=== PATIENT | female | born 1975 | race African-American/Black ===

== ENCOUNTER 2018-08-20 14:35 | Observation (INO) | payer BC ==
--- NOTE | 2018-08-20 15:42 | ED ---
Syncope/Near Syncope - HPI Summary HPI Summary: Patient reports abrupt onset of multiple symptoms at 14:00 this afternoon while at work. She states she was sitting at her desk when she turned at a regular pace to speak with a coworker and she had abrupt onset of what she describes as difficulty speaking although she could think of the words (reports I wanted to say the word "blue" but couldn't), the room was spinning, chest tightness across her entire chest and into both arms with tingling in her hands, difficulty breathing, difficulty focusing her vision and a feeling that she may pass out. She's not sure how long this lasted but believes it was a couple of minutes. These symptoms have passed however and she is now left feeling fatigued yet jittery and with generalized weakness and nausea. History of hypertension and fluid in her lower extremities as well as reduced EF in the 40's. She takes Diovan HCTZ and Norvasc. She reports she has not had any swelling in her lower extremities over the past 2 weeks. She also was diagnosed with "prediabetes" and states her hemoglobin A1c has not been above 6.7. It was advised that she start metformin however she has not taken this due to GI side effects (ie. loose stools). She also has a history of migraines which presented as a frontal headache photophobia and nausea - these resolved with ibuprofen and rest - she does not feel that the symptoms are the same as a migraine. Denies known history of aneurysm and no recent history of travel or trauma. She denies use of hormone therapy however admits her menstrual periods have been heavy as of late and she is scheduled to follow-up with [employer] regarding this issue. No known history of anemia. She does have a history of vitamin D deficiency and takes supplement once a week for that as well. She has asthma and has been struggling with respiratory symptoms over the past month. Reports at Thanksgiving time she developed URI with cough. Was seen initially and given supportive care. Did not improve so went back to the hospital and was given steroids along with nebulizer treatments and Symbicort. She reports she's feeling somewhat better since however admits she did not take her oral prednisone as directed intially but is in taper down at this time (has almost completed medication). She also feels she has not completely cleared URI /cough symptoms and they are lingering to some degree. Denies clair fever, chills, abdominal pain, vomiting, diarrhea and no recent history of dehydration. 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 - Allergies/Home Medications Allergies/Adverse Reactions: Allergies Allergy/AdvReac Type Severity Reaction Status Date / Time No Known Allergies Allergy Verified 08/20/18 19:56 Home Medications: Home Medications Albuterol 2.5MG/3ML (0.083%)* [Ventolin 2.5 MG/3 ML NEB.ALFIE*] 2.5 mg INH Q6H PRN 08/20/18 [History Confirmed 08/20/18] Aspirin 81 mg CHEW TAB* 81 mg PO DAILY 08/20/18 [History Confirmed 08/20/18] Diovan Hct 320/25(NF) 1 cap PO DAILY 08/20/18 [History Confirmed 08/20/18] Ergocalciferol (Vitamin D2) [Vitamin D2] 50,000 units PO WEEKLY 08/20/18 [ History Confirmed 08/20/18] amLODIPine TAB* [Norvasc 5 mg TAB*] 5 mg PO DAILY 08/20/18 [History Confirmed ] Budesonide/Formote 160/4.5(NF) [Symbicort 160/4.5 (NF)] 1 puff INH BID 08/22/18 [History Confirmed 08/22/18] PMH/Surg Hx/FS Hx/Imm Hx Previously Healthy: No - fighting URI/asthma exacerbation Endocrine/Hematology History: Reports: Hx Diabetes - "pre-diabetes" - non- compliant w/ metformin, Other Endocrine/Hematological Disorders - morbid obesity Denies: Hx Anticoagulant Therapy Cardiovascular History: Reports: Hx Hypertension - on meds, Other Cardiovascular Problems/Disorders - cardiomyopathy, EF in 40's - follows w/ [facility] Denies: Hx Aneurysm Respiratory History: Reports: Hx Asthma, Hx Sleep Apnea Sensory History: Reports: Hx Contacts or Glasses Opthamlomology History: Reports: Hx Contacts or Glasses Neurological History: Reports: Hx Migraine Infectious Disease History: No Infectious Disease History: Denies: Traveled Outside the [place] in Last 30 Days - Social History 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 Negative: Abdominal Pain, Vomiting, Diarrhea Genitourinary: Negative Musculoskeletal: Negative Skin: Negative Neurological: Other - see HPI for details Positive: Weakness - generalized Psychological: Normal - concerned but calm and cooperative All Other Systems Reviewed And Are Negative: Yes Physical Exam Triage Information Reviewed: Yes Vital Signs On Initial Exam: Initial Vitals Temp Pulse Resp BP Pulse Ox 97.9 F 96 20 153/83 97 08/20/18 14:41 08/20/18 14:41 08/20/18 14:41 08/20/18 14:41 08/20/18 14:41 Vital Signs Reviewed: Yes Appearance: Positive: Well-Appearing - anxious but cooperative, No Pain Distress , Obese Skin: Positive: Warm, Skin Color Reflects Adequate Perfusion, Dry Head/Face: Positive: Normal Head/Face Inspection Eyes: Positive: Normal, EOMI, FARHEEN - mild photophobia, Conjunctiva Clear ENT: Positive: Normal ENT inspection, Hearing grossly normal, Pharynx normal, TMs normal, Uvula midline. Negative: Nasal congestion, Nasal drainage, Tonsillar swelling, Tonsillar exudate, Trismus, Muffled voice, Hoarse voice, Dental tenderness, Sinus tenderness Dental: Negative: Dental Fracture @, Abscess @ Neck: Positive: Supple, Nontender, No Lymphadenopathy Respiratory/Lung Sounds: Positive: Clear to Auscultation, Breath Sounds Present. Negative: Rales, Rhonchi, Stridor, Tracheal Deviation, Wheezes, Unable to speak in full sentences, Fatigue Cardiovascular: Positive: Normal, RRR, S1, S2. Negative: Murmur, Rub, Leg Edema Left, Leg Edema Right - at the ankles Abdomen Description: Positive: Nontender, Soft Bowel Sounds: Positive: Present Musculoskeletal: Positive: Normal, Strength/ROM Intact Neurological: Positive: Normal, Sensory/Motor Intact, Alert, Oriented to Person Place, Time, CN Intact II-III Psychiatric: Positive: Normal - [place] Coma Scale Best Eye Response: 4 - Spontaneous Best Motor Response: 6 - Obeys Commands Best Verbal Response: 5 - Oriented Coma Scale Total: 15 Diagnostics - Vital Signs Vital Signs Temp Pulse Resp BP Pulse Ox 08/20/18 14:47 94 96 08/20/18 14:46 96 153/83 97 08/20/18 14:41 97.9 F 96 20 153/83 97 - Laboratory Result Diagrams: 08/20/18 16:18 08/20/18 16:18 Lab Statement: Any lab studies that have been ordered have been reviewed, and results considered in the medical decision making process. National Institutes Of Health - NIH Scale Level of Consciousness: Alert/Keenly Responsive Ask Patient the Month and His/Her Age: Both Correct Ask Pt to Open/Close Eyes and Clinical Team Lead/Release Non-Paretic Hand: Both Correctly Best Gaze (Only Horizontal Eye Movement): Normal Visual Field Testing: No Visual Loss Facial Paresis-Pt to Smile & Close Eyes or Grimace Symmetry: Normal/Symmetrical Motor Function - Right Arm: No Drift-Holds 10 Seconds Motor Function - Left Arm: No Drift-Holds 10 Seconds Motor Function - Right Leg: No Drift-Holds 10 Seconds Motor Function - Left Leg: No Drift-Holds 10 Seconds Limb Ataxia-Must be out of Proportion to Weakness Present: Absent Sensory (Use Pinprick to Test Arms/Legs/Trunk/Face): Normal Best Language (Describe Picture, Name Items): No Aphasia Dysarthria (Read Several Words): Normal Extinction and Inattention: No Abnormality Total Score: 0 Course/Dx Course Of Treatment: Patient presents with multiple symptoms of concern for cardiac and/or neurologic pathology. She reports these abruptly came on at 1400 this afternoon with minimal provocation and lasted for a couple of minutes. She has risk factors for DE, PE, CVA/TIA, vascular dissection. Other diff dx include anemia, electrolyte imbalance, thyroid dysfunction, exacerbation of poor cardiac EF (she reports this is 40% at last assessment), volume depletion, etc. See history of present illness for details. Initial concerns included TIA as she has no neuro deficits at this time. A workup to assess her cardiac and pulmonary function were also ordered as well as assessment of electrolytes, thyroid function and red blood cell status given her recent history of heavy periods. ECG reveals normal sinus rhythm with [address] elevations. CT of brain w/o hemorrhage or signs of inflammation. Her NIH score is 0 at 15:30. She was signed out to Perry Cruz PA-C in same condition as she presented. No meds given as pt's w/u is early and vitals stable w/o intervention at this time. - Diagnoses Provider Diagnoses: Aphasia, Chest pain, Near syncope Discharge - Sign-Out/Discharge Documenting (check all that apply): Sign-Out Patient Signing out patient TO: Perry Cruz - Discharge Plan Condition: Stable Disposition: ADMITTED TO [facility] - Billing Disposition and Condition Condition: STABLE Disposition: Admitted to [facility]
[2018-08-20 16:30] LABS: Hematocrit 36 % (35-47); Hemoglobin 11.8 g/dl (12.0-16.0); Mean Corpuscular HGB Conc 32 g/dl (31-36); Mean Corpuscular Hemoglobin 28 pg (27-31); Mean Corpuscular Volume 87 fL (80-97); Mean Platelet Volume 8.6 fL (7.4-10.4); Platelet Count 174 10^3/ul (150-450); Red Blood Count 4.19 10^6/ul (4.00-5.40); Red Cell Distribution Width 16 % (10.5-15); White Blood Count 7.4 10^3/ul (3.5-10.8)
[2018-08-20 16:40] LABS: Activated Partial Thrombo Time 28.8 seconds (26.0-36.3); INR 0.98 (0.77-1.02)
[2018-08-20 16:52] LABS: ALT 21 U/L (7-52); AST 17 U/L (13-39); Albumin 3.6 g/dL (3.2-5.2); Albumin/Globulin Ratio 1.1 (1-3); Alkaline Phosphatase 71 U/L (34-104); Anion Gap 4 mmol/L (2-11); BUN/Creatinine Ratio 17.6 (8-20); Blood Urea Nitrogen 16 mg/dL (6-24); CO2 Carbon Dioxide 33 mmol/L (22-32); Calcium 8.7 mg/dL (8.6-10.3); Chloride 102 mmol/L (101-111); EGFR Non-African American 66.9 (>60); Globulin 3.2 g/dL (2-4); Glucose 134 mg/dL (70-100); Magnesium 1.9 mg/dL (1.9-2.7); Sodium 139 mmol/L (135-145); Total Protein 6.8 g/dL (6.4-8.9)
[2018-08-20 17:00] LABS: HCG Pregnancy < 0.60 mIU/mL
[2018-08-20 17:21] LABS: ABS Basophils 0.1 10^3/ul (0-0.2); ABS Eosinophils 0.1 10^3/ul (0-0.6); ABS Lymphocytes 2.3 10^3/ul (1.0-4.8); ABS Monocytes 0.6 10^3/ul (0-0.8); ABS Neutrophils 4.2 10^3/ul (1.5-7.7); ABS Nucleated RBC 0 10^3/ul; Eosinophil % 1.2 %; Lymphocyte % 30.9 %; Nucleated Red Blood Cells % 0
[2018-08-20 17:46] LABS: TSH (Thyroid Stimulating Horm) 0.93 mcIU/mL (0.34-5.60)
[2018-08-20] MEDS ORDERED: Aspirin 81 mg CHEW TAB* 81 MG TAB.CHEW PO ONE (19:50)
[2018-08-20] MEDS ORDERED: Iohexol 350* (CONTRAST) 500 ML MDV IV ONE (19:57)
[2018-08-20 20:58] LABS: Urine Appearance Cloudy; Urine Bacteria Absent (Absent); Urine Bilirubin Negative (Negative); Urine Blood 1+ (Negative); Urine Color Yellow; Urine Glucose Negative (Negative); Urine Ketones Negative (Negative); Urine Nitrite Negative (Negative); Urine Protein Negative (Negative); Urine Red Blood Cell Trace(0-2/hpf) (Absent); Urine Urobilinogen Negative (Negative); Urine White Blood Cell Trace(0-5/hpf) (Absent)
[2018-08-20] MEDS ORDERED: Ondansetron INJ* 2 MG/ML VIAL IV PRN (21:51)
[2018-08-20] MEDS ORDERED: Acetaminophen TAB* 325 MG PO PRN (21:51)
[2018-08-20] MEDS ORDERED: Al Hydrox/Mg Hydrox/Simet LIQ* 30 ML UDC PO PRN (21:51)
[2018-08-20] MEDS ORDERED: Aspirin TAB* 325 MG PO ONE (21:57)
[2018-08-20] MEDS: Heparin VIAL(*) 5000 UNITS/ML VIAL (FIVE THOUSAND) SUBCUT SCH (23:17)
--- NOTE | 2018-08-21 01:50 | HP ---
CC: Yuliana Salazar * HISTORY AND PHYSICAL: DATE OF ADMISSION: 08/20/18 TIME OF EVALUATION: 1999 PRIMARY CARE PROVIDER: Yuliana Salazar. CHIEF COMPLAINT: Altered mental status. HISTORY OF PRESENT ILLNESS: This is a 43-year-old female with a past medical history of hypertension, morbid obesity, who had acute onset of altered mental status. The patient states she was recently diagnosed with URI and has asthma exacerbation which was getting better. 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 Right after lunch, she was about to walk to another alliance party; she stopped acutely, grabbed onto her friend because she became very off balance, shaky, lightheaded , dizzy, nauseated, and was unable to speak. She tried to speak, but she was unable to do that and she felt very weak in the upper torso of her body. She also felt slightly short of breath too and she had some vision changes. The extreme onset of symptoms lasted for about a minute and then the entire episode lasted 20 minutes before she fell back to herself. When EMS arrived, they recommended albuterol neb treatment as she states she was short of breath and they brought her here for further evaluation. She denies a headache. She did have some vision changes and the upper extremity weakness. She has never had a history of this in the past. She had just eaten prior to this episode. She denies any shortness of breath, no chest pain, no longer nauseated. She still feels little bit off but not like she was before. In the emergency room, the patient had labs and imaging with concern for TIA and Dr. Tuttle was contacted and recommended admission for further observation. PAST MEDICAL HISTORY: 1. Morbid obesity. 2. Hypertension. 3. Asthma. 4. Diabetes. MEDICATIONS: 1. The patient is on a prednisone taper 10 mg p.o. daily for 2 more days. 2. Albuterol MDI as needed. 3. Symbicort b.i.d. 4. Diovan/HCTZ 1 cap daily. 5. Aspirin 81 mg daily. 6. Norvasc 5 mg daily. 7. Vitamin D daily. 8. She is also prescribed metformin and Trulicity, but she does not take it, she feels that hemoglobin A1c has been normal. ALLERGIES: No known drug allergies. FAMILY HISTORY: Her mother is alive. Father is alive and has multiple myeloma. 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 No history of tobacco, alcohol, or illicit drug use. Her healthcare proxy is her mother. REVIEW OF SYSTEMS: A 14-point review of systems as mentioned in the HPI, otherwise negative. PHYSICAL EXAMINATION GENERAL: No acute distress. Resting comfortably. VITAL SIGNS: Temp 97.9, pulse rate 95, respiratory rate 20, oxygen saturation 98 % on room air, blood pressure 143/84. HEENT: Head: Normocephalic. Pupils are equal and reactive, anicteric. Oropharynx: Mucous membranes moist. NECK: Supple. No nuchal rigidity. RESPIRATORY: Diminished breath sounds. No wheezing, rhonchi, or rales. No increased work of breathing. CARDIAC: Regular rate and rhythm. Soft systolic murmur heard throughout. ABDOMEN: Morbidly obese, nontender. EXTREMITIES: No clubbing, cyanosis, or edema. +1 DPs. NEUROLOGIC: Alert and oriented x3. No gross focal neurologic deficits. Cranial nerves II through XII are intact. Negative pronator drift. LABORATORY DATA: White count 7.4, hemoglobin 11.8, hematocrit 36, platelets 174. INR is 0.98. D-dimer is less than 200. Sodium 139, potassium 4, chloride 102, bicarb 33, BUN 16, creatinine 0.91, glucose 134. Troponin 0.02, repeat 0.01. Beta hCG is less than 0.60. TSH is 0.93. RADIOGRAPHIC DATA: EKG: Sinus rhythm. Head CT: No evidence for gross acute infarct, mass effect, or hemorrhage. Chest x-ray shows cardiomegaly. Head CT, normal CTA of the head and neck. ASSESSMENT AND PLAN: This is a 43-year-old female with a past medical history of hypertension and morbid obesity who presents to the emergency room with acute onset of altered mental status, presyncope, and expressive aphasia. 1. Acute onset of altered mental status. Assessment: As mentioned above, it is unclear the etiology, does not appear to be vasovagal episode. It is possible that this could be a transient ischemic attack. This also could be a hypertensive urgency presentation. Her initial workup is unremarkable. Plan: We will admit her for observation to -[facility]. Continue neurologic checks. We will continue on a full dose aspirin for now. We will hold her antihypertensives to allow for permissive hypertension unless it gets higher than 180 systolic. We will order an MRI, echo as well and check a lipid panel. We will check hemoglobin A1c as well and follow up with any further Neurology recommendations. 2. Chronic medical problems: Diabetes. Per the patient, she does not require any oral agents. We will check hemoglobin A1c and place her on a lispro sliding scale. 3. Hypertension, as above. 4. FEN: Diabetic diet. 5. DVT prophylaxis: The patient scores moderate risk. We will place her on heparin subcu t.i.d. 4. Code status: Full code. PATIENT TIME: Greater than 45 minutes was spent doing the history and physical , more than half the time spent in direct patient contact. [id number]/[employer]PS #: [id number] YARY
--- NOTE | 2018-08-21 02:39 | PN ---
Progress Note - Progress Note Date of Service: 08/21/18 Note: Patient signed out to me by Kira MORATAYA, PENDING RESULTS OF LABS AND IMAGING. Chief complaint symptoms of speech difficulty, numbness and tingling in bilateral upper extremities though symptoms lasted for around 20 minutes before resolving prior to EMS arrival. Patient states only lightheadedness and queasiness here in the ED. Vital signs within normal limits and stable. Patient ambulating, has made 2 trips to the restroom, and has stopped along the way to converse with nurses at their station. labs unremarkable. CT brain unremarkable. Discussed patient symptoms with neurology business system consultant Dr. Tuttle who recommended CTA of head and neck, with subsequent admission if CTA negative , and subsequent transfer to [facility] if CTA positive. CTA results were negative,patient was admitted to hospitalist in stable condition at [facility] for further evaluation.
[2018-08-21] MEDS: Heparin VIAL(*) 5000 UNITS/ML VIAL (FIVE THOUSAND) SUBCUT SCH ×3 (05:54→22:35)
[2018-08-21 06:04] LABS: HDL Cholesterol 50.8 mg/dL
[2018-08-21] MEDS: Mometasone/Formoter 200/5 MDI INH SCH ×2 (07:28→19:41)
[2018-08-21] MEDS: predniSONE TAB* 10 MG PO SCH (08:07)
[2018-08-21] MEDS ORDERED: Perflutren Lipid Microsphere* 3 ML VIAL ONE (11:46)
--- NOTE | 2018-08-21 18:14 | ECHO ---
Patient: BOGDAN VASQUEZ [facility] Rec#: [id number] : 1975 Date: 08/21/2018 Age: 43y Height: 170 cm / 66.9 in Weight: 227 kg / 500.3 lbs Sex: F BSA: 2.98 Room#: 431 Admit Date#: 08/20/2018 Type: Inpatient Referring: Vandana Georges Reading: Prashant Shaver MD Image Archivist: Awa King RDCS CC: Krystyna Chaves MD Transthoracic Echocardiogram Indication: TIA BP: 136/86 HR: 85 Rhythm: NSR Findings History: MO, HTN, DM. Technical Comments: The study is technically limited due to patient body habitus. Completed at 1220. Left Ventricle: The left ventricular chamber size is moderately dilated. Moderate to severe concentric left ventricular hypertrophy is observed. There is global hypokinesis of the left ventricle with minor regional variation.The anterior segments are relatively preserved c/t the other segments. There is mildly decreased left ventricular systolic function. The estimated ejection fraction is 35-40%. Abnormal left ventricular diastolic function is observed. The left ventricular diastolic filling pattern is consistent with pseudonormalization. Left Atrium: The left atrium is moderately dilated. Right Ventricle: Moderator Band present. The right ventricle is mild to moderately dilated. The right ventricular global systolic function is mildly to moderately reduced. Right Atrium: The right atrium is moderate to severely dilated. Interatrial septum appears intact without evidence of shunting. The bubble study is negative. A patent foramen ovale is not demonstrated with color Doppler and agitated contrast. Aortic Valve: The aortic valve is trileaflet. The aortic valve leaflets are mildly thickened. There is a trace of aortic regurgitation. There is no evidence of aortic stenosis. Mitral Valve: The mitral valve leaflets are mildly thickened. There is mild to moderate mitral regurgitation. There is no evidence of mitral stenosis. Tricuspid Valve: The tricuspid valve leaflets are normal. There is mild tricuspid regurgitation. The right ventricular systolic pressure is estimated at 38 mmHg. There is evidence of mild pulmonary hypertension. There is no tricuspid stenosis. Pulmonic Valve: The pulmonic valve appears normal. There is a trace pulmonic regurgitation. There is no pulmonic stenosis. Pericardium: There is no significant pericardial effusion. A pericardial fat pad is visualized. Aorta: There is no dilatation of the ascending aorta. There is no dilatation of the aortic arch. The aortic root is normal in size. Pulmonary Artery: The main pulmonary artery is not well visualized. Venous: The inferior vena cava is dilated. There is a greater than 50% respiratory change in the inferior vena cava dimension. Contrast: Normal saline was used as contrast for the bubble study. Images 1 and 2. Intravenous contrast was used to enhance endocardial border definition. 3 mL of diluted Definity were utilized to optimize the study. Intravenous contrast was used to help determine presence of intracardiac shunting. Summary: There was not any prior study for comparison. Conclusions The left ventricular chamber size is moderately dilated. Moderate to severe concentric left ventricular hypertrophy is observed. There is global hypokinesis of the left ventricle with minor regional variation. The anterior segments are relatively preserved c/t the other segments. There is mildly decreased left ventricular systolic function. The estimated ejection fraction is 35-40%. The left ventricular diastolic filling pattern is consistent with pseudonormalization. The left atrium is moderately dilated. The right ventricle is mild to moderately dilated. The right ventricular global systolic function is mildly to moderately reduced. The right atrium is moderate to severely dilated. A patent foramen ovale is not demonstrated with color Doppler and agitated contrast. The aortic valve leaflets are mildly thickened. There is mild to moderate mitral regurgitation. There is mild tricuspid regurgitation. The right ventricular systolic pressure is estimated at 38 mmHg. There is evidence of mild pulmonary hypertension. Measurements Name Value Normal Range RVIDd (AP) 2D 3.8 cm (0.9 - 2.6) RVDdMajor (2D) 5.1 cm (2.2 - 4.4) RAd ISD 4CH 6.9 cm (3.4 - 4.9) RA (A4C)W 4.8 cm (2.9 - 4.6) IVSd (2D) 1.6 cm (0.6 - 1) LVPWd (2D) 1.7 cm (0.6 - 1) LVIDd (2D) 6.5 cm (3.6 - 5.4) LVIDs (2D) 5.7 cm - LV FS (2D) 12 % (25 - 45) Aortic Annulus 2.2 cm (1.4 - 2.6) Ao root diameter (2D) 3.4 cm (2.1 - 3.5) Ascending Ao 3.4 cm (2.1 - 3.4) Aortic arch 2.4 cm (1.8 - 3.4) LA dimension (AP) 2D 4 cm (2.3 - 3.8) LAd ISD 4CH 6.9 cm (2.9 - 5.3) LA ISD 4CH W 4.9 cm (2.5 - 4.5) Name Value Normal Range LA ESV BP (A/L) index 34 ml/m2 - Name Value Normal Range MV E-wave Vmax 0.9 m/sec - MV deceleration time 141 msec - MV A-wave Vmax 0.5 m/sec - MV E:A ratio 2 ratio - LV septal e' Vmax 0.06 m/sec - LV lateral e' Vmax 0.08 m/sec - LV E:e' septal ratio 15 ratio - LV E:e' lateral ratio 11.3 ratio - Name Value Normal Range AV Vmax 1.3 m/sec - AV VTI 24 cm - AV peak gradient 6 mmHg - AV mean gradient 4 mmHg - LVOT Vmax 0.6 m/sec - LVOT VTI 12 cm - LVOT peak gradient 1 mmHg - LVOT mean gradient 1 mmHg - REGGIE Vmax 1 m/sec - Name Value Normal Range TR Vmax 2.7 m/sec - TR peak gradient 30 mmHg - RAP 8 mmHg - RVSP 38 mmHg - IVC diameter 2.5 cm - Name Value Normal Range PV Vmax 0.9 m/sec - PV peak gradient 4 mmHg -
[2018-08-21] MEDS: Aspirin 81 mg CHEW TAB* 81 MG TAB.CHEW PO SCH (18:59)
--- NOTE | 2018-08-21 20:39 | PN ---
Subjective Date of Service: 08/21/18 Interval History: Resting in bed on assessment. Denies dizziness, cp, sob, lightheadedness, difficulty finding words, difficulty swallowing, n/v/d. Objective Active Medications: Acetaminophen (Tylenol Tab*) 650 mg PO Q4H PRN PRN Reason: FEVER/PAIN Al Hydrox/Mg Hydrox/Simethicone (Maalox Plus*) 30 ml PO Q6H PRN PRN Reason: INDIGESTION Aspirin (Aspirin 81 Mg Chew Tab*) 81 mg PO DAILY [facility] Last Admin: 08/21/18 18:59 Dose: 81 mg Heparin Sodium (Porcine) (Heparin Vial(*)) 5,000 units SUBCUT Q8HR [facility] Last Admin: 08/21/18 14:38 Dose: 5,000 units Mometasone Furoate/Formoterol Fumar (Dulera 200/5 Mdi*) 2 puff INH BID [facility]; Protocol Last Admin: 08/21/18 19:41 Dose: 2 puff Ondansetron HCl (Zofran Inj*) 4 mg IV Q4H PRN PRN Reason: NAUSEA/VOMITING Prednisone (Deltasone Tab*) 10 mg PO DAILY [facility] Stop: 08/23/18 08:59 Last Admin: 08/21/18 08:07 Dose: Not Given Vital Signs - 8 hr 08/21/18 08/21/18 15:10 19:44 Temperature 97.3 F Pulse Rate 83 88 Respiratory 20 18 Rate Blood Pressure 146/96 (mmHg) O2 Sat by Pulse 97 98 Oximetry Oxygen Devices in Use Now: None Appearance: Comfortable, NAD Eyes: PERRLA Ears/Nose/Mouth/Throat: Clear Oropharnyx, Mucous Membranes Moist Neck: NL Appearance and Movements; NL JVP Respiratory: Symmetrical Chest Expansion and Respiratory Effort, Clear to Auscultation Cardiovascular: NL Sounds; No Murmurs; No JVD, RRR, No Edema Abdominal: NL Sounds; No Tenderness; No Distention Lymphatic: No Cervical Adenopathy Extremities: No Edema Skin: No Rash or Ulcers Neurological: Alert and Oriented x 3, NL Muscle Strength and Tone, - - Cranial Nerves intact. Nutrition: Taking PO's Result Diagrams: 08/20/18 16:18 08/20/18 16:18 Assess/Plan/Problems-Billing Assessment: 43 y old female with pmh of htn, obesity, asthma, dm; who presented to the ED with episode of dizziness, lightheadedness, difficulty speaking - Patient Problems (1) Dizziness Comment: - CTA Head and Neck unremarkable. - CT Brain unremarkable - Symptoms have resolved and not returned. (2) Aphagia Comment: - CTA Head and Neck unremarkable. - CT Brain unremarkable - Symptoms have resolved and not returned. - Parag matthews and we appreciate his assistance. (3) HTN (hypertension) Comment: - Currently holding BP meds to allow for some hypertension in case of TIA. - As soon as BP meds can be restarted patient should be as her echo shows decreased EF and ventricular function (4) Diabetes Comment: - A1c 6.9 - Cont sliding scale and diabetic diet (5) Sleep apnea Comment: - Reports she has sleep apnea and CPAP at home, but unable to leave it on all night therefore she has O2 at home for sleeping. - O2 NC at 2L ordered (6) DVT prophylaxis Comment: - Hep SubQ Attending: Sugey Holland
--- NOTE | 2018-08-21 20:54 | CONS ---
NEUROLOGY CONSULTATION: DATE OF CONSULT: 08/21/18 LOCATION: She is an inpatient in room 431. REFERRING PROVIDER: Dr. Georges. CHIEF COMPLAINT: Episode of feeling dizzy, hot, blurry vision, and difficulty speaking. HISTORY OF PRESENT ILLNESS: Charlotte Pate is a 43-year-old woman, who was in her usual state of health yesterday after lunch at work when she started to feel extreme burning sensation throughout her head. It seemed to spread into her arms and little bit in her chest. It was bilateral. She felt her vision got a little bit blurry, but she could see. She became very anxious. She suffers from panic attacks. The episode lasted several minutes and after that she was tearful. She was then able to speak. She was with coworkers and they called the ambulance. She was brought into the emergency room and admitted. She had a little of nausea in the ambulance, but not otherwise. She did not get diaphoretic. She did not lose consciousness. She was able to walk to the [facility] for the ambulance attendance. She has felt fine since. There is no history of seizures or stroke before. PAST MEDICAL HISTORY: Notable for morbid obesity, hypertensive heart disease, asthma, hypertension, diabetes. MEDICATIONS: At home consist of: 1. Symbicort b.i.d. 2. Albuterol p.r.n. 3. Diovan/hydrochlorothiazide 1 p.o. q. day. 4. Aspirin 81 mg p.o. q. day. 5. Norvasc 5 mg q. day. 6. She is prescribed metformin, but does not take it. ALLERGIES: She does not have any drug allergies. SOCIAL HISTORY: She works for [employer]. She does not smoke. She does not drink alcohol. She has 2 daughters, who came to visit her while I was evaluating her. REVIEW OF SYSTEMS: Notable for episodic migraines about once every 3 to 4 months. She has not had one recently. There is no history of head trauma or seizures. She says her ejection fractions followed by her legal writing professor have been as high as 40% and as low as 35%. She says her legal writing professor says that if she would lose weight and improve her diet, they think that the cardiac dysfunction would improve. She has never had a cardiac catheterization. She does not have any chest pain. She was short of breath during the episode, but she thinks it was because she became very anxious. She has had panic attacks before and that was reminiscent of that. She had a recent respiratory illness with a cough and was on prednisone. She has not been on the prednisone for a little over week now. She still has a cough at times. PHYSICAL EXAM: She is morbidly obese. Blood pressure fluctuates from 150/90 to 110/60. Heart rate is in the 70s and regular and respiratory rate is 22. Oxygen saturation is 98% on room air. Lungs are clear bilaterally. Heart is in a regular rhythm without murmurs heard. Neck is supple. There are no cervical bruits. Oral mucosa is moist and atraumatic. Neurological Exam: Pupils react equally from 3 down to 2 mm. Funduscopic exam is normal bilaterally. Eye movements are normal. Visual davis are full to confrontation. Facial musculature and facial sensation are intact and symmetric. Palate and tongue appear normal and there is no dysarthria. Hearing is intact. Motor exam reveals normal muscle strength and tone proximally and distally in the upper and lower extremities. Sensory exam is intact to pin, vibration, and light touch in upper and lower extremities. Reflexes are a bit difficult to elicit because of the obesity, but are normal at biceps and knees and ankles. Plantar responses are flexor bilaterally. Butaao-qz-cztl maneuver is normal bilaterally. There is no rest or action tremor. Isbg-oo-gnbc maneuver is normal as well. She is alert, oriented, and a good detailed historian. Memory is intact and language is fluent. She has adequate attention, concentration, and fund of knowledge. DIAGNOSTIC STUDIES/LAB DATA: Includes a CT of the brain and CT angiogram, both interpreted as normal. I reviewed the studies and I agree. Transthoracic echocardiogram reveals left ventricular hypertrophy with an ejection fraction of 35% to 40%. Other laboratory data notable for normal CBC other than a borderline hemoglobin of 11.8, chemistries notable for hemoglobin A1c of 6.9%, cholesterol 173, LDL 100. Carbon dioxide was elevated when she came in last night at 33. Glucose upon presentation 134. Lactic acid normal at 0.8. TSH normal at 0.93 and troponin was 0.02 last evening. Liver enzymes are normal. INR is within normal limits, D-dimer less than 200. Urinalysis notable for 1+ blood, but otherwise negative. IMPRESSION AND PLAN: Impression is that of an episode of possible near syncope. She raised the issue of whether she could have had a hot flash, which she has never had before, and then a panic attack. I said that is possible. Her symptoms do not really suggest a focal cerebrovascular event. She had a bilateral sense of heat and blurry vision and had difficulty speaking, but felt very panicky. I do not think she needs any further neurological workup. Her cardiac situation may be stable, but she probably should be reevaluated by her legal writing professor at some point. There has been no evidence of an arrhythmia while she has been here as my understanding. I would continue her aspirin therapy. [id number]/[facility] #: [id number] YARY
[2018-08-22] MEDS: Heparin VIAL(*) 5000 UNITS/ML VIAL (FIVE THOUSAND) SUBCUT SCH (05:51)
[2018-08-22] MEDS: Mometasone/Formoter 200/5 MDI INH SCH (08:11)
[2018-08-22] MEDS: Aspirin 81 mg CHEW TAB* 81 MG TAB.CHEW PO SCH (09:21)
[2018-08-22] MEDS: predniSONE TAB* 10 MG PO SCH (09:22)
--- NOTE | 2018-08-22 09:52 | PN ---
Subjective Date of Service: 08/22/18 Interval History: Patient seen and examined at bedside. Denies fever, chills, shortness of breath , chest discomfort, N/V/D, difficulty with speech or vision. She denies any of the neurological symptoms that caused her to present to the emergency room. She follows with a County Director Welfare with [facility] in [place]. 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 She is interested in getting into [facility] for DM, HTN and weight management. Tele: NS with PVCs, rate 80's Family History: Unchanged from Admission Social History: Unchanged from Admission Past Medical History: Unchanged from Admission Objective Active Medications: Acetaminophen (Tylenol Tab*) 650 mg PO Q4H PRN Reason: FEVER/PAIN Al Hydrox/Mg Hydrox/Simethicone (Maalox Plus*) 30 ml PO Q6H PRN Reason: INDIGESTION Aspirin (Aspirin 81 Mg Chew Tab*) 81 mg PO DAILY COUNT INCLUDES THE [facility] Heparin Sodium (Porcine) (Heparin Vial(*)) 5,000 units SUBCUT Q8HR COUNT INCLUDES THE [facility] Mometasone Furoate/Formoterol Fumar (Dulera 200/5 Mdi*) 2 puff INH BID KEREN; Protocol Ondansetron HCl (Zofran Inj*) 4 mg IV Q4H PRN Reason: NAUSEA/VOMITING Prednisone (Deltasone Tab*) 10 mg PO DAILY COUNT INCLUDES THE [facility] Stop: 08/23/18 08:59 Vital Signs - 8 hr 08/22/18 08/22/18 08/22/18 03:24 07:39 08:12 Temperature 98.0 F 97.9 F Pulse Rate 89 84 85 Respiratory 24 18 18 Rate Blood Pressure 131/62 122/80 (mmHg) O2 Sat by Pulse 96 98 98 Oximetry Oxygen Devices in Use Now: None Appearance: NAD, sitting up on the side of the bed Ears/Nose/Mouth/Throat: Mucous Membranes Moist Respiratory: Symmetrical Chest Expansion and Respiratory Effort, Clear to Auscultation - , diminished Cardiovascular: NL Sounds; No Murmurs; No JVD, RRR Abdominal: NL Sounds; No Tenderness; No Distention, - - Abdomen is obese Extremities: No Edema Skin: No Rash or Ulcers Neurological: Alert and Oriented x 3, NL Muscle Strength and Tone Lines/Tubes/Other Access: Clean, Dry and Intact Peripheral IV - site benign Nutrition: Taking PO's Result Diagrams: 08/20/18 16:18 08/20/18 16:18 Assess/Plan/Problems-Billing Assessment: Ms. Pate is a 43 y old female with pmh significant for htn, obesity, asthma, and dm who presented to the ED with episode of dizziness, lightheadedness, and difficulty speaking. - Patient Problems (1) Aphagia Code(s): R13.0 - APHAGIA SNOMED Code(s): 68865108 Comment: - Symptoms have resolved and not returned - CTA Head and Neck unremarkable - CT Brain unremarkable - Echo - No PFO - Neurology consult, input appreciated (2) Dizziness Code(s): R42 - DIZZINESS AND GIDDINESS SNOMED Code(s): 696429450 Comment: - Symptoms have resolved and not returned - CTA Head and Neck unremarkable - CT Brain unremarkable - Suspect this may represent near syncope - Neurology and Cardiology consults, input appreciated (3) Cardiomyopathy Code(s): I42.9 - CARDIOMYOPATHY, UNSPECIFIED SNOMED Code(s): 19161103 Comment: - Known issue - Echo shows decreased ventricular systolic function and EF 35-40% - Cardiology consult, input appreciated - Will need to follow up with Cardiology outpatient (4) HTN (hypertension) Code(s): I10 - ESSENTIAL (PRIMARY) HYPERTENSION SNOMED Code(s): 25916057 Comment: - Mostly normotensive, SBP 110-150's - Resumed amlodipine - Will continue to hold Valsartan for now - May benefit from a ACEI/betablocker but will defer to her County Director Welfare (5) Diabetes Code(s): E11.9 - TYPE 2 DIABETES MELLITUS WITHOUT COMPLICATIONS SNOMED Code(s) : 35089439 Comment: - HgA1c 6.9 - Diet controlled (6) Sleep apnea Code(s): G47.30 - SLEEP APNEA, UNSPECIFIED SNOMED Code(s): 33397734 Comment: - Reports she has sleep apnea and CPAP at home, but unable to leave it on all night therefore she has O2 at home for sleeping (7) Morbid obesity with BMI of 70 and over, adult Code(s): E66.01 - MORBID (SEVERE) OBESITY DUE TO EXCESS CALORIES; Z68.45 - BODY MASS INDEX (BMI) 70 OR GREATER, ADULT SNOMED Code(s): 150789407 Comment: - BMI 78 (8) DVT prophylaxis Code(s): QBX9517 - SNOMED Code(s): 396571076 (9) Full code status Code(s): Z78.9 - OTHER SPECIFIED HEALTH STATUS SNOMED Code(s): 583788206 Status and Disposition: OBV. Stable for discharge to home today.
[2018-08-22 11:40] VITALS: BP 140/93
--- NOTE | 2018-08-22 12:14 | CONS ---
CC: Dr. Ferro, shift superintendent [employer], [place], [place]; Awa Dennis NP, Hospitalist Service CARDIOLOGY CONSULTATION: DATE OF CONSULT: 08/22/18 INDICATION FOR CONSULTATION: Cardiomyopathy HISTORY OF PRESENT ILLNESS: The patient is a 43-year-old female with a history of hypertension, hist ory of severe obesity who was admitted to the hospital because of a severe burning sensation in her h ead and blurred vision. She came to the emergency room and underwent a CT of her head, which was unr emarkable. She had an echocardiogram yesterday, which showed moderately reduced LV systolic function , ejection fraction of 35% to 40%, global hypokinesis with qpxcjilx-ag-nrkobt left ventricular hypert rophy, lyjd-uf-bblxuyte mitral regurgitation and mild tricuspid regurgitation, no evidence of pulmona ry hypertension. In speaking with the patient, the patient states that she has had this diagnosis of cardiomyopathy fo r a number of years that was first diagnosed in 2014 down at [facility] in [place] when she was getting ev aluated for bariatric surgery. She has been seeing Dr. Ferro in [place] for at least 2 years. She apparently at some point underwent a chemical stress test, which was thought to be nonischemic cardio myopathy. PAST MEDICAL HISTORY: Significant for morbid obesity, hypertension, asthma, diabetes. OUTPATIENT MEDICATIONS: 1. Albuterol inhalers. 2. Symbicort b.i.d. 3. Diovan/hydrochlorothiazide 1 tablet a day. 4. Aspirin 81 mg a day. 5. Norvasc 5 mg a day. 6. Vitamin D daily. 7. Recent prednisone taper for bronchitis. ALLERGIES: No known drug allergies. FAMILY HISTORY: Her mother is alive and well. Father has multiple myeloma. 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 She denies tobacco or alcohol use. She has 2 children. REVIEW OF SYSTEMS: Negative for fevers or chills. Negative for changes in bowel or bladder habits. Negative for changes in weight. Other 12-point review is unremarkable except for her presenting sym ptoms. PHYSICAL EXAM: Height is 5 feet 7 inches, weight is 500 pounds, temperature 97.8, heart rate is 84, blood pressure 122/80, respiratory rate is 18, oxygen saturation 98% on room air. Sclerae anicteric. Oropharynx is pink without erythema. Carotids are 2+ without bruits. JVD is normal. Thyroid is no rmal. Cardiac Exam: Distant heart sounds. S1, S2 without any murmurs, rubs, or gallops. PMI is dif ficult to assess. Lungs are clear to auscultation. Abdomen is obese, soft, nontender, and nondisten ded with normoactive bowel sounds. Extremities show no edema. She has 2+ pulses throughout. The pa tient is awake, alert, and oriented. She moves all 4 extremities equally. DIAGNOSTIC STUDIES/LAB DATA: EKG shows normal sinus rhythm with nonspecific T-wave abnormalities. Laboratory studies: CBC within normal limits. Chemistries within normal limits. Troponins are negat finn x3. Total cholesterol 173, LDL cholesterol 100, HDL cholesterol 50. IMPRESSION: This is a 43-year-old female who was admitted to the hospital with blurred vision and he adache. An echocardiogram showed moderately reduced left ventricular systolic function and severe le ft ventricular hypertrophy. This is not a new diagnosis for this patient, she has been aware of it since 2015. She does see Dr. Riaz grant, a shift superintendent [employer]ylate in [place]. At this point, I do not think any other workup is necessary. The patient should return to her usual medications. The patient should follow up with Dr. Ferro as an outpatient. This case was discussed with Awa Dennis NP of the hospitalist service. [id number]/[facility] #: [id number]
--- NOTE | 2018-08-23 13:18 | DS ---
CC: Dr. Hernandez, [place]; Dr. Matt Ferro; [facility] * DISCHARGE SUMMARY: DATE OF ADMISSION: 08/20/18 DATE OF DISCHARGE: 08/22/18 ATTENDING PHYSICIAN: Dr. Jose A Haney * (dictated by Chava Bolivar NP). PRIMARY CARE PROVIDER: Dr. Hernandez at [facility]. PRIMARY DIAGNOSES: 1. Presyncope. 2. Aphasia, resolved. 3. Dizziness, resolved. SECONDARY DIAGNOSES: 1. Diabetes mellitus. 2. Hypertension. 3. Cardiomyopathy, suspect nonischemic. 4. Sleep apnea. 5. Morbid obesity, with BMI of 78. CONSULTATIONS WHILE IN THE HOSPITAL: 1. Dr. Russell Tuttle with Neurology. 2. Dr. Mohinder Perry with Cardiology. STUDIES WHILE IN THE HOSPITAL: 1. Brain CT on 08/20/18. Radiologist's impression: No evidence for gross acute infarct, mass effect or hemorrhage. 2. Chest x-ray on 08/20/18. Radiologist's impression: Cardiomegaly. 3. Head and neck CTA on 08/20/18. Radiologist's impression: No dissection, aneurysm or flow-limiting lesion. Normal CTA of the neck. 4. Transthoracic echocardiogram on 08/21/18. Patient Accounts Clerk's conclusion: The left ventricular chamber size is moderately dilated. Uirbizys-gx-ugzeyl concentric left ventricular hypertrophy is observed. There is global hypokinesis of the left ventricle with minor regional variation. The anterior segments are relatively preserved, C/T the other segments. There is mildly decreased left ventricular systolic function. The estimated ejection fraction is 35% to 40%. The left ventricular diastolic filling pattern is consistent with pseudonormalization. The left atrium is moderately dilated. The right ventricle is nnwe-wb-rtrolstbxb dilated. The right ventricular global systolic function is okisdk-cn-hpbfrofuoq reduced. The right atrium is moderate-to- severely dilated. A patent foramen ovale is not demonstrated with color Doppler and agitated contrast. The aortic valve leaflets are mildly thickened. There is njte-wm-ajvjclkn mitral regurgitation. There is mild tricuspid regurgitation. The right ventricular systolic pressure is estimated at 30 mmHg. There is evidence of mild pulmonary hypertension. DISCHARGE MEDICATIONS: Continued home medications: 1. Albuterol 2.5 mg/3 mL, 2.5 mg inhalation every 6 hours as needed for shortness of breath or wheeze. 2. Aspirin 81 mg oral daily. 3. Amlodipine 5 mg oral daily. 4. Vitamin D2 50,000 units oral weekly. 5. Symbicort 160/4.5, 1 puff inhalation twice daily. Medications on hold: Diovan 320/25. HISTORY OF PRESENT ILLNESS/HOSPITAL COURSE: Ms. Pate is a 43-year-old female with past medical history significant for hypertension, morbid obesity with a BMI of 78, diabetes mellitus, and asthma, who had an acute onset of altered mental status. Ms. Pate had recently been diagnosed with an upper respiratory infection and asthma exacerbation and was getting better. While at work, she was walking, stopped suddenly, grabbed onto her friend because she became off balance, shaky, lightheaded, dizzy, nauseated, and was unable to speak. She tried to speak, but was only able to get 1 or 2 words out and not all of the words that she wanted. She also felt very weak. She developed shortness of breath and had some visual changes. This lasted for a minute and then she had another episode lasting approximately 20 minutes and then she felt like her normal self. EMS was called; when they arrived, they gave her an albuterol treatment for her shortness of breath and she was brought to the emergency room for further evaluation of her symptoms. While in the emergency room, due to her visual changes and reports of upper extremity weakness, she had a head CTA showing no findings. Her shortness of breath resolved. She had a CTA of her head and neck that showed no significant stenosis. Dr. Russell Tuttle with Neurology saw the patient in consultation. There was concern for a TIA and the hospitalists were asked to evaluate the patient for admission. While in the hospital, patient had no further symptoms. Her neuro checks were within normal limits. Of note, she was noted to be hypertensive in the emergency room. Some of her symptoms were initially felt to possibly be secondary to possible hypertensive urgency, but her blood pressure medicines were held in the setting of a possible TIA or stroke to allow for permissive hypertension. She was unable to have an MRI due to her weight. Dr. Tuttle felt that this was likely not a TIA and most likely a presyncopal event. She had a transthoracic echocardiogram showing a systolic dysfunction and a reduced ejection fraction. It was felt that she needed no further neurological workup and to continue her on aspirin. She was also seen in consultation by Dr. Mohinder Perry with Cardiology for her cardiomyopathy. The patient has a history of cardiomyopathy and she follows with Dr. Ferro with Cardiology for at least 2 years for this. It was felt that she may benefit from some medication changes, but at this point the plan was to keep her on her current medications with followup with her outpatient project management advisor. Ms. Pate is stable for discharge home today. Vital signs are as follows: Temperature 97.9, heart rate 76, respiratory rate 18, O2 sat 100% on room air, blood pressure 148/93. DISCHARGE PLAN: Ms. Pate will be discharged to home. Activity as tolerated. She should be on a low sodium, consistent carbohydrate diet. In regards to her presyncopal event, she was noted to have mostly normotensive blood pressures off of her Diovan. Due to having blood pressures in the 120s and 130s without any antihypertensives, the decision was made to hold her Diovan at discharge, but to continue her amlodipine. She has been asked to try to monitor her blood pressures until she is able to be seen by her primary care provider, at which time they can decide if she should be placed back on her Diovan. She should be continued on her aspirin. She has no signs of asthma exacerbation at this time. She is no longer taking her prednisone taper as she states she does not like how it felt and only had a few days left. In regards to her cardiomyopathy , she should follow up with her project management advisor, Dr. Ferro, at which point, he should consider placing her on an SRI inhibitor or beta-frank, but again we are deferring this to outpatient cardiology to make this decision. She has been referred to the [facility] for weight management, hypertension management, and diabetes mellitus management. She has been given their phone number to call and set up an appointment. She was then asked to keep her current scheduled appointment with her primary care provider on . She has been asked to call Dr. Ferro's office to set up an appointment prior to her previously scheduled October 2018 appointment. She has been asked to return to the emergency room for any chest pain, shortness of breath, return of neurological changes. This is a summarized report of a complex medical history and hospital stay. For further details, please see the entire medical record. TIME SPENT: Time for this discharge was approximately 50 minutes, greater than half of that was spent qcut-hj-zgtd with the patient, discussing discharge plans and instructions. CONDITION ON DISCHARGE: Stable. CHAVA BOLIVAR, ANDREW [id number]/[facility] #: [id number] YARY
== END 2018-08-22 12:50 | disposition home or self-care (01) ==
LOC: ED 14:35 → OBSVTOIN 21:51 → INTOOBSV 21:51 → MEDTELE 21:51
PROVIDERS: ADMIT Pediatrics; ATTEND Student in an Organized Health Care Education/Training Program
DX: R55 Syncope and collapse (principal); R47.01 Aphasia; R42 Dizziness and giddiness; E11.9 Type 2 diabetes mellitus without complications; I10 Essential (primary) hypertension; I42.9 Cardiomyopathy, unspecified; G47.30 Sleep apnea, unspecified; E66.01 Morbid (severe) obesity due to excess calories; Z68.45 Body mass index [BMI] 70 or greater, adult; J45.909 Unspecified asthma, uncomplicated; Z79.82 Long term (current) use of aspirin; Z79.899 Other long term (current) drug therapy
CPT/HCPCS: 36415; 70450; 70496; 70498; 71046; 80053; 80061; 81003; 81015; 82553; 83036; 83605; 83735; 83880; 84443; 84484; 84702; 85025; 85379; 85610; 85730; 87086; 93005; 93306; 94640; 96372; 99284; A9270-GY; G0378; J1644; J7512; Q9967